=== PATIENT | male | born 1990 | race Two or more races ===

== ENCOUNTER 2018-09-05 23:11 | Emergency (ER) | payer MEDICAID ==
[~2018-09-05] VITALS: Ht 172.7 cm; Wt 81.6 kg
[2018-09-05 23:15] VITALS: BP 152/87
== END 2018-09-06 05:00 | disposition left against medical advice (07) ==
LOC: EDBD 23:11 → ER 23:11 → EDUNIT# 23:11 → ER 09-06 05:00
DX: S61.411A Laceration without foreign body of right hand, initial encounter (principal); Z53.21 Procedure and treatment not carried out due to patient leaving prior to being seen by health care provider; W22.8XXA Striking against or struck by other objects, initial encounter; Y93.89 Activity, other specified; Y92.89 Other specified places as the place of occurrence of the external cause; Y99.8 Other external cause status

== ENCOUNTER 2018-09-06 06:59 | Emergency (ER) | payer MEDICAID ==
[~2018-09-06] VITALS: Ht 167.6 cm; Wt 74.8 kg
[2018-09-06 08:06] VITALS: BP 134/82
[2018-09-06] MEDS ORDERED: LET TOPICAL SOLN 5 ML TOP ONE (08:15)
[2018-09-06] MEDS ORDERED: LIDOCAINE 1% (LOCAL ANESTH.) PF 5ml SDV ID ONE (08:15)
[2018-09-06] MEDS ORDERED: BACITRACIN TOP OINT 1 UD PKG TOP ONE (08:15)
== END 2018-09-06 11:19 | disposition home or self-care (01) ==
LOC: ER 06:59
DX: S61.411A Laceration without foreign body of right hand, initial encounter (principal); W45.8XXA Other foreign body or object entering through skin, initial encounter; Y93.89 Activity, other specified; Y92.89 Other specified places as the place of occurrence of the external cause; Y99.8 Other external cause status
CPT/HCPCS: 12002; 73130

== ENCOUNTER 2018-09-15 02:06 | Emergency (ER) | payer MEDICAID ==
[~2018-09-15] VITALS: Ht 170.2 cm; Wt 74.8 kg
[2018-09-15] MEDS ORDERED: diphenhdrAMINE HCL 50 MG/1 ML VL ONE (02:14)
[2018-09-15] MEDS ORDERED: HALOPERIDOL LACTATE 5 MG/ML INJ VIAL ONE (02:15)
[2018-09-15] MEDS ORDERED: diphenhdrAMINE HCL 50 MG/1 ML VL IV ONE (02:15)
[2018-09-15] MEDS ORDERED: LORazepam 2MG/ML-1ML VIAL IV ONE (02:15)
[2018-09-15] MEDS ORDERED: HALOPERIDOL LACTATE 5 MG/ML INJ VIAL IM ONE (02:15)
[2018-09-15] MEDS ORDERED: LORazepam 2MG/ML-1ML VIAL ONE (02:15)
[2018-09-15 02:39] LABS: Basophils # (auto) 0 uL; Basophils % (auto) 0.1 % (0.0-2.0); Eosinophils # (auto) 0 uL; Hematocrit 50.6 % (41.0-53.0); Hemoglobin 16.6 g/dL (13.5-17.5); Lymphocytes # (auto) 2.4 uL; Mean Corpuscular Hemoglobin 29.4 pg (28.0-32.0); Mean Corpuscular Hgb Conc. 32.7 g/dL (32.0-36.0); Mean Corpuscular Volume 89.9 fL (80.0-100.0); Monocytes # (auto) 0.4 uL; Monocytes % (auto) 1.8 % (0.0-12.0); Neutrophils # (auto) 20.9 uL; Neutrophils % (auto) 88.1 % (37.0-80.0); Nucleated Red Blood Cells % 0.1 %; Platelet Count (auto) 348 10^3/uL (140-450); Red Blood Cells 5.64 10^6/uL (4.5-5.90); Red Cell Distribution Width 13.4 % (11.8-14.3); White Blood Cell 23.7 10^3/uL (4.4-10.8)
[2018-09-15 03:01] LABS: Albumin 4.8 g/dL (3.4-5.0); BUN/Creatinine Ratio 7.9; Calcium 9.1 mg/dL (8.5-10.1); Potassium 3.9 mmol/L (3.5-5.1)
[2018-09-15 03:04] LABS: Bilirubin, Total 0.5 mg/dL (0.2-1.0); Total Protein 8.5 g/dL (6.4-8.2)
[2018-09-15] MEDS ORDERED: cefTRIAXone 1GM/50ML D5W 50 ML IV ONE ×2 (03:15→03:30)
[2018-09-15 03:59] VITALS: BP 160/88
== END 2018-09-15 04:01 ==
LOC: ER 02:06
DX: F19.10 Other psychoactive substance abuse, uncomplicated (principal); R73.9 Hyperglycemia, unspecified; D72.829 Elevated white blood cell count, unspecified; N28.9 Disorder of kidney and ureter, unspecified; F14.90 Cocaine use, unspecified, uncomplicated; Z48.00 Encounter for change or removal of nonsurgical wound dressing; Z02.89 Encounter for other administrative examinations
CPT/HCPCS: 36415; 80053; 85025; 96365; 96372; 96375; 99284; J0696; J1200; J1630; J2060